=== PATIENT | female | born 1995 | race Caucasian/White ===

== ENCOUNTER 2018-04-15 08:00 | Outpatient (RCR) | payer BC ==
[2018-04-13] MEDS: methylPREDNISolone SOD SUCC 1,000 MG in NS (IVPB) 100 ML IV SCH (13:27)
[2018-04-13 14:30] VITALS: BP 108/63
[2018-04-14] MEDS: methylPREDNISolone SOD SUCC 1,000 MG in NS (IVPB) 100 ML IV SCH (08:35)
[2018-04-14 09:14] VITALS: BP 122/78
[~2018-04-15] VITALS: Ht 162.6 cm; Wt 86.2 kg
[~2018-04-15 08:00] MED LIST: NS (IVPB) 100 ML ONE
[2018-04-15] MEDS: methylPREDNISolone SOD SUCC 1,000 MG in NS (IVPB) 100 ML IV SCH (08:15)
[2018-04-15 08:24] VITALS: BP 129/69
== END 2018-04-15 09:30 | disposition home or self-care (01) ==
LOC: SDC 08:00
PROVIDERS: ATTEND Internal Medicine
DX: G35 Multiple sclerosis (principal)
CPT/HCPCS: 96365

== ENCOUNTER 2018-05-19 15:43 | Emergency (ER) | payer OTHER, BC ==
[~2018-05-19] VITALS: Ht 162.6 cm; Wt 86.2 kg
--- OUTSIDE RECORDS SUMMARY | 2018-05-19 15:49 | XMS REPORT ---
Author Author SAM MORTON Organization [facility] Address [address] [place] [address] Care Team Providers Care Health Care Social Worker Name Role Phone ZENIA MORTONTA Unavailable PROBLEMS Type Condition ICD9-CM Code [id number] Code Onset Dates Condition Status SNOMED Code Problem Acute bilateral low back pain with right-sided sciatica M54.41 Active 681411237 Problem Paresthesia of skin R20.2 Active 25428378 Problem MENINGOCOCCAL DX V03.89 Active 19997358 ALLERGIES No Information ENCOUNTERS Encounter Location Date Diagnosis [place] [address] [address] Mar, [place] [address] [address] Mar, [place] [address] [address] Jan, Acute bilateral low back pain with right-sided sciatica M54.41 [place] [address] [address] 19 Jan, 2018 Paresthesia of skin R20.2 [place] [address] [address] Jan, Paresthesia of skin R20.2 ; Screening for other and unspecified deficiency anemia Z13.0 ; Screening for hyperlipidemia Z13.220 ; Screening for thyroid disorder Z13.29 and Acute bilateral low back pain with right-sided sciatica M54.41 [facility] [address] [place] [id number] [place] [address] Dec, Back pain, lumbosacral M54.5 [facility] [address] [id number] Dec, Paresthesia of skin R20.2 and Anesthesia of skin R20.0 [facility] [id number] [address] May, [facility] [address] [address] May, Acute URI J06.9 [facility] [address] [address] Dec, [facility] [address] [address] Dec, IMMUNIZATIONS No Known Immunizations SOCIAL HISTORY Never Assessed REASON FOR VISIT Request Return Call PLAN OF CARE VITAL SIGNS MEDICATIONS Unknown Medications RESULTS No Results PROCEDURES No Known procedures INSTRUCTIONS MEDICATIONS ADMINISTERED No Known Medications MEDICAL (GENERAL) HISTORY Type Description Date Surgical History tonsillectomy
--- OUTSIDE RECORDS SUMMARY | 2018-05-19 15:49 | XMS REPORT ---
Author Author SAM MORTON Organization [facility] Address [address] [place] [address] Care Team Providers Care House Admin Name Role Phone ZENIA MORTONTA Unavailable PROBLEMS Type Condition ICD9-CM Code PSO24-UQ Code Onset Dates Condition Status SNOMED Code Problem Acute bilateral low back pain with right-sided sciatica M54.41 Active 954227741 Problem Paresthesia of skin R20.2 Active 36385879 Problem MENINGOCOCCAL DX V03.89 Active 59155061 ALLERGIES No Information ENCOUNTERS Encounter Location Date Diagnosis [place] [address] [address] Mar, [facility] [address] [address] Jan, Acute bilateral low back pain with right-sided sciatica M54.41 [place] [address] [address] 19 Jan, 2018 Paresthesia of skin R20.2 [place] [address] [address] 11 Jan, 2018 Paresthesia of skin R20.2 ; Screening for other and unspecified deficiency anemia Z13.0 ; Screening for hyperlipidemia Z13.220 ; Screening for thyroid disorder Z13.29 and Acute bilateral low back pain with right-sided sciatica M54.41 [facility] [address] [address] 09 Dec, 2017 Back pain, lumbosacral M54.5 [facility] [address] [address] Dec, Paresthesia of skin R20.2 and Anesthesia of skin R20.0 [place] [address] [facility] [id number] [address] May, [facility] [address] [place] [id number] [address] May, Acute URI J06.9 [facility] [address] [facility] [id number] [address] Dec, [facility] [address] [place] [id number] [address] Dec, IMMUNIZATIONS No Known Immunizations SOCIAL HISTORY Never Assessed REASON FOR VISIT MRI PLAN OF CARE VITAL SIGNS MEDICATIONS Unknown Medications RESULTS No Results PROCEDURES No Known procedures INSTRUCTIONS MEDICATIONS ADMINISTERED No Known Medications MEDICAL (GENERAL) HISTORY Type Description Date Surgical History tonsillectomy
--- OUTSIDE RECORDS SUMMARY | 2018-05-19 15:50 | XMS REPORT ---
Author Author SAM MORTON Organization [facility] Address [address] [place] [address] Care Team Providers Care Caramel Cutter Machine Name Role Phone KING SAM Unavailable PROBLEMS Type Condition ICD9-CM Code [id number] Code Onset Dates Condition Status SNOMED Code Problem Acute bilateral low back pain with right-sided sciatica M54.41 Active 273078048 Problem Paresthesia of skin R20.2 Active 54430838 Problem MENINGOCOCCAL DX V03.89 Active 60016065 ALLERGIES No Known Allergies ENCOUNTERS Encounter Location Date Diagnosis [place] [address] [address] Jan, Acute bilateral low back pain with right-sided sciatica M54.41 [facility] [address] [place] [id number] [place] [address] Jan, Paresthesia of skin R20.2 [place] [address] [address] Jan, Paresthesia of skin R20.2 ; Screening for other and unspecified deficiency anemia Z13.0 ; Screening for hyperlipidemia Z13.220 ; Screening for thyroid disorder Z13.29 and Acute bilateral low back pain with right-sided sciatica M54.41 [facility] [address] [place] [id number] [place] [address] Dec, Back pain, lumbosacral M54.5 [facility] [address] [place] [id number] [place] [address] Dec, Paresthesia of skin R20.2 and Anesthesia of skin R20.0 [facility] [address] [place] [id number] [place] [address] May, [facility] [address] [facility] [id number] [place] [address] May, Acute URI J06.9 [facility] [address] [facility] [id number] [place] [address] Dec, [facility] [address] [facility] [id number] [place] [address] Dec, IMMUNIZATIONS No Known Immunizations SOCIAL HISTORY Never Assessed REASON FOR VISIT Establish Care----DBennettRN, intermittent lower back pain, numbness in bilateral feet x 1 month PLAN OF CARE Activity Details Follow Up 3 months or as indicated by lab Reason: VITAL SIGNS Height 64 in 2018-02-06 Weight 195 lbs 2018-02-06 Temperature 98.4 degrees Fahrenheit 2018-02-06 Heart Rate 120 bpm 2018-02-06 Respiratory Rate 20 2018-02-06 BMI 33.47 kg/m2 2018-02-06 Blood pressure systolic 120 mmHg 2018-02-06 Blood pressure diastolic 64 mmHg 2018-02-06 MEDICATIONS Medication Instructions Dosage Frequency Start Date End Date Duration Status Tylenol 8 Hour 650 MG Orally every 8 hrs 2 tablets as needed 8h Active Ibuprofen 400 MG Orally Three times a day 1 tablet with food or milk as needed 8h Active RESULTS No Results PROCEDURES Procedure Date Ordered Result Body Site URINALYSIS, AUTO, W/O SCOPE Feb 06, 2018 URINE TEST Feb 06, 2018 LIPID PANEL Feb 06, 2018 ASSAY THYROID STIM HORMONE Feb 06, 2018 VENIPUNCT, ROUTINE* Feb 06, 2018 X-RAY EXAM OF LOWER SPINE Feb 06, 2018 COMPREHEN METABOLIC PANEL Feb 06, 2018 COMPLETE CBC W/AUTO DIFF WBC Feb 06, 2018 INSTRUCTIONS MEDICATIONS ADMINISTERED No Known Medications MEDICAL (GENERAL) HISTORY Type Description Date Surgical History tonsillectomy
--- OUTSIDE RECORDS SUMMARY | 2018-05-19 15:50 | XMS REPORT ---
Author Author KODY Moura Organization [facility] Address [address] [place] [address] Care Team Providers Care Plans Examiner Name Role Phone KODY Moura Unavailable PROBLEMS Type Condition ICD9-CM Code HJX69-AO Code Onset Dates Condition Status SNOMED Code Problem MENINGOCOCCAL DX V03.89 Active 08608399 ALLERGIES No Known Allergies ENCOUNTERS Encounter Location Date Diagnosis [facility] [id number] [place] [address] May, [facility] [address] [place] [address] May, Acute URI J06.9 [facility] [address] [place] [address] Dec, [facility] [address] [place] [id number] [place] [address] Dec, IMMUNIZATIONS Vaccine Route Administration Date Status TORADOL (IM) 60 MG/2ML (UP TO 15 MG) IM Intramuscular Jun 01, 2017 Administered SOCIAL HISTORY Never Assessed REASON FOR VISIT head and nasal congestion PLAN OF CARE Activity Details Follow Up prn Reason: VITAL SIGNS Weight 205.4 lbs 2017-06-01 Temperature 98.1 degrees Fahrenheit 2017-06-01 Heart Rate 84 bpm 2017-06-01 Respiratory Rate 20 2017-06-01 Blood pressure systolic 122 mmHg 2017-06-01 Blood pressure diastolic 74 mmHg 2017-06-01 MEDICATIONS Medication Instructions Dosage Frequency Start Date End Date Duration Status Azithromycin 250 MG Orally Once a day 2 tablets on day 1, the take 1 tablet day 2-5 24h 5 day(s) Active RESULTS No Results PROCEDURES Procedure Date Ordered Result Body Site TORADOL (IM) 60 MG/2ML (UP TO 15 MG) Jun 01, 2017 THER/PROPH/DIAG INJ, SC/IM Jun 01, 2017 INSTRUCTIONS MEDICATIONS ADMINISTERED No Known Medications
--- OUTSIDE RECORDS SUMMARY | 2018-05-19 15:50 | XMS REPORT ---
Author Author KODY Moura Organization [facility] Address [address] [place] [address] Care Team Providers Care Risk And Insurance Consultant Name Role Phone KODY Moura Unavailable PROBLEMS Type Condition ICD9-CM Code GTV34-JV Code Onset Dates Condition Status SNOMED Code Problem MENINGOCOCCAL DX V03.89 Active 56799388 ALLERGIES No Information ENCOUNTERS Encounter Location Date Diagnosis [facility] [id number] [address] May, [facility] [address] [address] May, Acute URI J06.9 [facility] [address] [place] [id number] [address] Dec, [facility] [address] [place] [address] Dec, IMMUNIZATIONS No Known Immunizations SOCIAL HISTORY Never Assessed REASON FOR VISIT prescription PLAN OF CARE VITAL SIGNS MEDICATIONS Unknown Medications RESULTS No Results PROCEDURES No Known procedures INSTRUCTIONS MEDICATIONS ADMINISTERED No Known Medications
--- OUTSIDE RECORDS SUMMARY | 2018-05-19 15:50 | XMS REPORT ---
Author Author ALFONZO MARTIN Organization [facility] Address [address] [place] [address] Care Team Providers Care Measuring Clerk Name Role Phone ALFONZO MARTIN Unavailable PROBLEMS Type Condition ICD9-CM Code QEB19-BY Code Onset Dates Condition Status SNOMED Code Problem Acute bilateral low back pain with right-sided sciatica M54.41 Active 318115452 Problem Paresthesia of skin R20.2 Active 77370406 Problem MENINGOCOCCAL DX V03.89 Active 73403762 ALLERGIES No Known Allergies ENCOUNTERS Encounter Location Date Diagnosis [facility] [address] [address] Jan, Paresthesia of skin R20.2 ; Screening for other and unspecified deficiency anemia Z13.0 ; Screening for hyperlipidemia Z13.220 ; Screening for thyroid disorder Z13.29 and Acute bilateral low back pain with right-sided sciatica M54.41 [facility] [address] [address] Dec, Back pain, lumbosacral M54.5 [facility] [address] [address] Dec, Paresthesia of skin R20.2 and Anesthesia of skin R20.0 [facility] [address] [place] [id number] [place] [address] May, [facility] [address] [address] May, Acute URI J06.9 [facility] [address] [address] Dec, [facility] [address] [place] [address] Dec, IMMUNIZATIONS No Known Immunizations SOCIAL HISTORY Never Assessed REASON FOR VISIT reports 2 days ago she was at work and her feet et toes went numb et they still are. also stated she works 8 hour shifts and is on her feet all day. [email or web address] PLAN OF CARE Activity Details Follow Up 01/09 courtney/ Kindra Amado Reason:establish care/bilateral foot numbness VITAL SIGNS Height 64 in 2018-01-03 Weight 195.2 lbs 2018-01-03 Temperature 98.4 degrees Fahrenheit 2018-01-03 Heart Rate 80 bpm 2018-01-03 Respiratory Rate 20 2018-01-03 BMI 33.50 kg/m2 2018-01-03 Blood pressure systolic 120 mmHg 2018-01-03 Blood pressure diastolic 70 mmHg 2018-01-03 MEDICATIONS No Known Medications RESULTS No Results PROCEDURES No Known procedures INSTRUCTIONS MEDICATIONS ADMINISTERED No Known Medications MEDICAL (GENERAL) HISTORY Type Description Date Surgical History tonsillectomy
--- OUTSIDE RECORDS SUMMARY | 2018-05-19 15:50 | XMS REPORT ---
Author Author SAM MORTON Organization [facility] Address [address] [place] [address] Care Team Providers Care Import/Export Administrator Name Role Phone KING SAM Unavailable PROBLEMS Type Condition ICD9-CM Code JHL86-LZ Code Onset Dates Condition Status SNOMED Code Problem Acute bilateral low back pain with right-sided sciatica M54.41 Active 418726570 Problem Paresthesia of skin R20.2 Active 53658896 Problem MENINGOCOCCAL DX V03.89 Active 12846705 ALLERGIES No Information ENCOUNTERS Encounter Location Date Diagnosis [place] [address] [address] Jan, Acute bilateral low back pain with right-sided sciatica M54.41 [facility] [address] [place] [id number] [place] [address] Jan, Paresthesia of skin R20.2 [place] [address] [address] Jan, Paresthesia of skin R20.2 ; Screening for other and unspecified deficiency anemia Z13.0 ; Screening for hyperlipidemia Z13.220 ; Screening for thyroid disorder Z13.29 and Acute bilateral low back pain with right-sided sciatica M54.41 [facility] [address] [place] [id number] [place] [address] Dec, Back pain, lumbosacral M54.5 [facility] [address] [place] [id number] [place] [address] Dec, Paresthesia of skin R20.2 and Anesthesia of skin R20.0 [place] [address] [place] [id number] [place] [address] May, [facility] [address] [facility] [id number] [place] [address] May, Acute URI J06.9 [facility] [address] [facility] [id number] [address] Dec, [facility] [address] [facility] [id number], [place] [address] Dec, IMMUNIZATIONS No Known Immunizations SOCIAL HISTORY Never Assessed REASON FOR VISIT MRI PLAN OF CARE VITAL SIGNS MEDICATIONS Unknown Medications RESULTS Name Result Date Reference Range MRI : Lumbar w/o contrast PROCEDURES No Known procedures INSTRUCTIONS MEDICATIONS ADMINISTERED No Known Medications MEDICAL (GENERAL) HISTORY Type Description Date Surgical History tonsillectomy
--- OUTSIDE RECORDS SUMMARY | 2018-05-19 15:50 | XMS REPORT | Continuity of Care Document ---
Author Author [facility] Address Unknown Phone Unavailable Allergies Active Description Code Type Severity Reaction Onset Reported/Identified Relationship to Patient Clinical Status Yes No Known Drug Allergies [id number] Drug Allergy Unknown N/A 04/13/2018 Medications There is no data. Problems Date Dx Coded Attending Type Code Diagnosis Diagnosed By EUSEBIA MICHAEL DO Ot G35 MULTIPLE SCLEROSIS 12/30/2013 HATTIE VEGA APRN V03.89 MENINGOCOCCAL DX 04/15/2018 EUSEBIA MICHAEL DO Ot G35 MULTIPLE SCLEROSIS Procedures There is no data. Results Test Result Range TSH - 02/06/18 15:34 TSH 1.17 mIU/L NRG Encounters ACCT No. Visit Date/Time Discharge Status Pt. Type Provider Facility Loc./Unit Complaint [id number] 12/30/2013 14:19:00 12/30/2013 23:59:59 CLS Outpatient HATTIE VEGA APRN [id number] 01/04/2018 16:10:00 01/04/2018 23:59:59 CLS Outpatient [facility] [id number] 02/06/2018 13:40:00 Document Registration [id number] 04/15/2018 08:00:00 04/15/2018 09:30:00 DIS Outpatient EUSEBIA MICHAEL DO [facility] SDC OCULAR NEURITIS [id number] 02/16/2018 09:11:00 02/16/2018 23:59:59 CLS Preadmit SAM MORTON APRN [facility] RAD ACUTE BILATERAL LOW BACK PAIN [id number] 05/19/2018 15:45:00 ACT Emergency JOSEPH MCKEON MD [facility] ER CUT FINGER AT WORK
--- OUTSIDE RECORDS SUMMARY | 2018-05-19 15:50 | XMS REPORT ---
Author Author WILLI Blanca Organization [facility] Address [address] [place] [address] Care Team Providers Care Sales And Service Advisor Name Role Phone WILLI Blanca Unavailable PROBLEMS Type Condition ICD9-CM Code FEX95-UP Code Onset Dates Condition Status SNOMED Code Problem Acute bilateral low back pain with right-sided sciatica M54.41 Active 288059593 Problem Paresthesia of skin R20.2 Active 27891465 Problem MENINGOCOCCAL DX V03.89 Active 94234085 ALLERGIES No Known Allergies ENCOUNTERS Encounter Location Date Diagnosis [place] [address] [address] Jan, Paresthesia of skin R20.2 ; Screening for other and unspecified deficiency anemia Z13.0 ; Screening for hyperlipidemia Z13.220 ; Screening for thyroid disorder Z13.29 and Acute bilateral low back pain with right-sided sciatica M54.41 [facility] [address] [address] Dec, Back pain, lumbosacral M54.5 [facility] [address] [address] Dec, Paresthesia of skin R20.2 and Anesthesia of skin R20.0 [facility] [address] [address] May, [facility] [address] [address] May, Acute URI J06.9 [place] [address] [address] Dec, [facility] [address] [facility] [id number] [place] [address] Dec, IMMUNIZATIONS No Known Immunizations SOCIAL HISTORY Never Assessed REASON FOR VISIT foot pain et numbness bilaterally. was here yesterday for this same complaint. also pain in her right lower back. thinks the pain is bec ause she works 8 hr shifts. [email or web address] PLAN OF CARE Activity Details Follow Up prn Reason: VITAL SIGNS Height 64 in 2018-01-04 Weight 196.0 lbs 2018-01-04 Temperature 98.0 degrees Fahrenheit 2018-01-04 Heart Rate 82 bpm 2018-01-04 Respiratory Rate 20 2018-01-04 BMI 33.64 kg/m2 2018-01-04 Blood pressure systolic 116 mmHg 2018-01-04 Blood pressure diastolic 72 mmHg 2018-01-04 MEDICATIONS No Known Medications RESULTS No Results PROCEDURES No Known procedures INSTRUCTIONS MEDICATIONS ADMINISTERED No Known Medications MEDICAL (GENERAL) HISTORY Type Description Date Surgical History tonsillectomy
[2018-05-19] MEDS ORDERED: TETANUS,DIPTH,PERTUSS P/F (BOOSTRIX) 0.5 ML VIAL IM STA (16:18)
--- NOTE | 2018-05-19 16:42 | ED Upper Extremity ---
General Chief Complaint: Laceration Stated Complaint: CUT FINGER AT WORK Nursing Triage Note: PT SENT FROM WORK WITH LEFT FINGER LACERATION. PT STATES SHE CUTTING VEGETABLE AT WORK AND CUT HER FINGER. Nursing Sepsis Screen: No Definite Risk Source: patient Exam Limitations: no limitations History of Present Illness Date Seen by Provider: May 19, 2018 Time Seen by Provider: 16:10 Initial Comments Here with laceration to the left index finger when she accidentally cut herself with a knife while cutting that she was at work. Denies other injury. Last tetanus shot was at least 5 years ago but she is unsure. She did wash the wound with peroxide after the injury. Onset: just prior to arrival Severity: mild Pain/Injury Location: left 2nd finger Method of Injury: incised Modifying Factors: Worse With Movement; Improves With Rest Allergies and Home Medications Allergies Coded Allergies: No Known Drug Allergies (Unverified , 04/13/18) Patient Home Medication List Home Medication List Reviewed: Yes Review of Systems Constitutional: no symptoms reported Respiratory: no symptoms reported Cardiovascular: no symptoms reported Skin: see HPI, lesions; No rash Psychiatric/Neurological: No Symptoms Reported Past Rupvrge-Yruwjw-Xwtsts Hx Past Med/Social Hx: Reviewed Nursing Past Med/Soc Hx Patient Social History Alcohol Use: Denies Use Recreational Drug Use: No Smoking Status: Never a Smoker Recent Foreign Travel: No Contact w/Someone Who Travel: No Recent Infectious Disease Expo: No Recent Hopitalizations: No Immunizations Up To Date Tetanus Booster (TDap): Less than 5yrs PED Vaccines UTD: Yes Seasonal Allergies Seasonal Allergies: No Past Medical History Surgeries: Yes Tonsillectomy Respiratory: No Cardiac: No Neurological: No Genitourinary: No Gastrointestinal: No Musculoskeletal: No Endocrine: No HEENT: No Cancer: No Psychosocial: No Integumentary: No Blood Disorders: No Family Medical History Reviewed Nursing Family Hx No Pertinent Family Hx Physical Exam Vital Signs Vital Signs - First Documented 05/19/18 15:51 Pulse 86 Resp 20 B/P (MAP) 134/87 (103) Pulse Ox 97 O2 Delivery Room Air Capillary Refill : Less Than 3 Seconds Height, Weight, BMI Height: 5'4.00" Weight: 190lbs. 0.0oz. 86.378165ew; BMI Method:Stated General Appearance: WD/WN, no apparent distress Cardiovascular: regular rate, rhythm, no murmur Respiratory: lungs clear, normal breath sounds Hand: Left, laceration (left index finger from side surface lateral aspect that does not involve the nail. Superficial flap of about 0.5 x 1 cm), soft tissue tenderness Neurologic/Psychiatric: alert, normal mood/affect, oriented x 3 Skin: warm/dry, other (laceration as above) Procedures/Interventions Wound Location: Upper Extremities Other Wound Location Left index finger thumb side lateral aspect Wound Length (cm): 1 Wound's Depth, Shape: flap Wound Explored: contaminated Betadine Prep?: No Wound Debrided: minimal Other Closure Supply: Wound Adhesive Number of Sutures: 0 Progress Cleaned and covered with skin glue. Flap: Please well after glue. Bleeding controlled. Progress/Results/Core Measures Results/Orders My Orders Orders - JOSEPH MCKEON MD Dipht,Pertuss(Acell),Tet Adult (Boostrix (05/19/18 16:18) Vital Signs/I&O 05/19/18 15:51 Pulse 86 Resp 20 B/P (MAP) 134/87 (103) Pulse Ox 97 O2 Delivery Room Air Blood Pressure Mean: 103 Progress Progress Note : Progress Note Wound cleaned. Closed with skin glue. Tolerated procedure well with no complications. Discharged home with return precautions. Patient verbalize understanding instructions and agreement with plan. Tetanus updated. Departure Impression Primary Impression: Finger laceration Qualified Codes: S61.211A - Laceration without foreign body of left index finger without damage to nail, initial encounter Disposition: 01 HOME, SELF-CARE Condition: Improved Departure-Patient Inst. Decision time for Depature: 16:41 Referrals: [facility] [place] (PCP) Primary Care Physician SAM MORTON APRN (Family) Primary Care Physician Patient Instructions: Laceration Repair With Glue (DC) Add. Discharge Instructions: All discharge instructions reviewed with patient and/or family. Voiced understanding. You may cover wound with dry dressing and/or glove as needed. Do not use antibiotic ointment on wound and do not soak wound as this will prematurely remove glue. The glue should follow 5*the next for 5 days. Return for worse pain, swelling, increasing redness, red streaks up the hand, fever or other concerns as needed. JOSEPH MCKEON MD May 19, 2018 16:42
[2018-05-19 17:05] VITALS: BP 134/87
== END 2018-05-19 17:05 | disposition home or self-care (01) ==
LOC: EDUNIT# 15:43 → ER 15:45
DX: S61.211A Laceration without foreign body of left index finger without damage to nail, initial encounter (principal); Z90.89 Acquired absence of other organs; W26.0XXA Contact with knife, initial encounter; Y99.0 Civilian activity done for income or pay
CPT/HCPCS: 12001; 90715

== ENCOUNTER 2021-04-01 05:31 | Outpatient (RCR) | payer BC ==
[~2021-04-01] VITALS: Ht 165.1 cm; Wt 107.6 kg
[~2021-04-01 05:31] MED LIST changes: -NS (IVPB) 100 ML ONE; +TERI14TA PO
== END 2021-04-01 12:53 | disposition home or self-care (01) ==
LOC: PREOP 05:31
PROVIDERS: ATTEND Surgery
DX: Z01.812 Encounter for preprocedural laboratory examination (principal); K21.9 Gastro-esophageal reflux disease without esophagitis; Z20.822 Contact with and (suspected) exposure to COVID-19
CPT/HCPCS: 87635

== ENCOUNTER 2021-04-05 08:54 | Day surgery (SDC) | payer BC ==
[~2021-04-05] VITALS: Ht 165 cm; Wt 107.4 kg
[2021-04-05] VITALS (7 sets, daily range): BP systolic 119–134; BP diastolic 62–92
--- OUTSIDE RECORDS SUMMARY | 2021-04-05 08:57 | XMS REPORT | Clinical Summary ---
Author Author [facility] Organization [facility] Address Unknown Phone Unavailable Care Team Providers Care Manager In Home Name Role Phone Soumya Cardona APRN PCP [phone] Source Comments Some departments are not documenting in the electronic medical record. If you d o not see the information that you expected, contact Release of Information in [facility] Health Information Management department at [phone] for further assistan ce in locating additional records.[facility] Allergies No Known Active Allergies Medications End Date Status Medication Sig Dispensed Refills Start Date Active MULTIVITAMIN PO Take by [address] (PRILOSEC) Take 20 mg by 0 20 mg capsule mouth daily before breakfast. Active teriflunomide (AUBAGIO) Take one 30 tablet 5 14 mg tablet tablet by 1 mouth daily. Take at the same time every day. Active cholecalciferol (VITAMIN Take 2,000 0 D-3) 1,000 units tablet Units by mouth daily. Active amoxicillin (AMOXIL) 500 Take 500 mg 0 mg capsule by mouth twice daily. Active metroNIDAZOLE (FLAGYL) Take 500 mg 0 500 mg tablet by mouth twice daily. Take with food. Do not drink alcohol while on metronidazole . Active ondansetron (ZOFRAN ODT) Dissolve by 0 4 mg rapid dissolve mouth twice tablet daily. Place on tongue to dissolve. Active Problems Problem Noted Date PTSD (post-traumatic stress disorder) 02/01/2021 Overview: Formatting of this note might be differ ent from the original. Has failed Paxil, duloxetine, vybrid, h ydroxyzine L ast Assessment & Plan: Formatting of this note might be differ ent from the original. Currently taking Trintellix. Will defer to her psychiatrist for furt her treatment. Encouraged her to continue treatment. T he MS should have no bearing on her treatment at this time. Multiple sclerosis 05/17/2018 Overview: Formatting of this note might be differ ent from the original. MS Subtype: Relapsing-Remitting Symptom onset: November 2017 Diagnosis: Apr 2018 Past Failed DMD: copaxone (couldn't do injections) Current DMD: aubagio LP 03/2018: 12 OCB, 2.04 IgG index NMO antibody neg Last MRI 2020 Unchanged bilateral periventricular/per icallosal lesions, compatible with clinically reported multiple sclerosis. No evidence of new lesion. MRI C-spine 2018 Unremarkable MRI cervical spine. MRI T-spine 2018 On personal review there appears to be a T2 hyperintensity in the posterior cord at T9-T10. L ast Assessment & Plan: Formatting of this note might be differ ent from the original. Clinically and radiographically stable on Aubagio. MRI reviewed with patient. Continue Aubagio CBC, CMP Vitamin D level. 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; 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); Vitamin D deficiency 01/22/2021 Orders Only Neurology from Last 3 Months Surgical History Surgery Date Site/Laterality Comments HX TONSILLECTOMY Medical History Medical History Date Comments Generalized headaches Multiple sclerosis (HCC) Family History Medical History Relation Name Comments Heart Attack Father Stroke Father Diabetes Type II Maternal Grandfather Diabetes Type II Maternal Grandmother Multiple sclerosis Mother Relation Name Status Comments Father Maternal Grandfather Maternal Grandmother Mother Social History Date Tobacco Use Types Packs/Day Years Used Passive Smoke Exposure - Never Smoker Smokeless Tobacco: Never Used Comments Alcohol Use Standard Drinks/Week No 0 (1 standard drink = 0.6 o z pure alcohol) Sex Assigned at Date Recorded Female 11/11/2019 11:10 AM CDT Last Filed Vital Signs Reading Time Taken Comments Vital Sign 127/85 01/29/2021 2:01 PM CDT Blood Pressure 86 01/29/2021 2:01 PM CDT Pulse 36.7 C (98 F) 02/15/2019 11:04 AM CDT Temperature 18 01/11/2019 8:18 AM CDT Respiratory Rate 98% 01/11/2019 8:18 AM CDT Oxygen Saturation - - Inhaled Oxygen Concentration 106.7 kg (235 lb 3.2 oz) 01/29/2021 2:01 PM CDT Weight 162.6 cm (5' 4") 01/29/2021 2:01 PM CDT Height 40.37 01/29/2021 2:01 PM CDT Body Mass Index Plan of Treatment Health Maintenance Due Date Last Done Comments HPV VACCINES (1 - 2-dose 10/09/2007 series) HIV SCREENING 10/09/2011 DTAP/TDAP VACCINES (1 - 2014 Tdap) HEPATITIS C SCREENING 2014 PHYSICAL (COMPREHENSIVE) 2014 EXAM CERVICAL CANCER SCREENING 2017 INFLUENZA VACCINE 12/27/2020 Procedures Comments Procedure Name Priority Date/Time Associated Diag nosis HC 25-OH VITAMIN D Routine 01/29/2021 Multiple sc lerosis (HCC) 2:43 PM CDT Vitamin D deficiency HC CBC W/ AUTOMATED DIFF Routine 01/29/2021 Multi ple sclerosis (HCC) 2:43 PM CDT care home current use of therapeutic drug 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) HC COMPREHENSIVE Routine 01/29/2021 Multiple scle rosis (HCC) METABOLIC PANEL 2:43 PM CDT data communications analyst current u se of therapeutic drug 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) MRI HEAD WO CONTRAST Routine 01/29/2021 Multiple sclerosis (HCC) 9:25 AM CDT from Last 3 Months Results * 25-OH VITAMIN D (D2 + D3) (01/29/2021 2:43 PM CDT) Vitamin 32.7 30 - 80 NG/ML [facility] D(25-OH)Total Specimen Blood Performing Organization Address City/State/ZIP Code P marian Number [facility] [address] [place] [address] * CBC AND DIFF (01/29/2021 2:43 PM CDT) White Blood 7.7 4.5 - 11.0 K/UL [facility] Cells RBC 4.92 4.0 - 5.0 M/UL [facility] Hemoglobin 11.8 (L) 12.0 - 15.0 GM/DL [facility] Hematocrit 36.1 36 - 45 % [facility] MCV 73.4 (L) 80 - 100 FL [facility] MCH 23.9 (L) 26 - 34 PG [facility] MCHC 32.6 32.0 - 36.0 G/DL [facility] RDW 15.8 (H) 11 - 15 % [facility] Platelet Count 299 150 - 400 K/UL [facility] MPV 7.7 7 - 11 FL [facility] Neutrophils 66 41 - 77 % [facility] Lymphocytes 19 (L) 24 - 44 % [facility] Monocytes 9 4 - 12 % [facility] Eosinophils 5 0 - 5 % [facility] Basophils 1 0 - 2 % [facility] Absolute 5.09 1.8 - 7.0 K/UL [facility] Neutrophil Count Absolute Lymph 1.48 1.0 - 4.8 K/UL [facility] Count Absolute 0.67 0 - 0.80 K/UL [facility] Monocyte Count Absolute 0.36 0 - 0.45 K/UL [facility] Eosinophil Count Absolute 0.06 0 - 0.20 K/UL [facility] Basophil Count Specimen Blood Performing Organization Address City/State/ZIP Code P marian Number [facility] [address] [place] [address] * COMPREHENSIVE METABOLIC PANEL (01/29/2021 2:43 PM CDT) Sodium 140 137 - 147 MMOL/L [facility] Potassium 3.8 3.5 - 5.1 MMOL/L [facility] Chloride 106 98 - 110 MMOL/L [facility] Glucose 89 70 - 100 MG/DL [facility] Blood Urea 11 7 - 25 MG/DL [facility] Nitrogen Creatinine 0.77 0.4 - 1.00 MG/DL [facility] Calcium 9.0 8.5 - 10.6 MG/DL [facility] Total Protein 6.6 6.0 - 8.0 G/DL [facility] Total Bilirubin 0.3 0.3 - 1.2 MG/DL [facility] Albumin 3.9 3.5 - 5.0 G/DL [facility] Alk Phosphatase 59 25 - 110 U/L [facility] AST (SGOT) 15 7 - 40 U/L [facility] CO2 27 21 - 30 MMOL/L [facility] ALT (SGPT) 12 7 - 56 U/L [facility] Anion Gap 7 3 - 12 [facility] eGFR Non >60 >60 mL/min [facility] Comment: [place] The eGFR is not validated f or use in drug dosing adjustments. Continue to use estimated creatinine clearance per dosing reference text. Please contact the Clinical Pharmacist for questions. eGFR >60 >60 mL/min [facility] [place] Comment: The eGFR is not validated for use in drug dosing adjustments. Continue to use estimated creatinine clearance per dosing reference text. Please contact the Clinical Pharmacist for questions. Specimen Blood Performing Organization Address City/State/ZIP Code P marian Number [facility] [address] [place] [address] * MRI HEAD WO CONTRAST (01/29/2021 9:25 AM CDT) Specimen Impressions Performed At Unchanged bilateral periventricular/pericallosal lesi ons, compatible with [facility] clinically reported multiple sclerosis. No evidence of new lesion. Finalized by Isela Devine D.O. on 9:52 AM. Dictated by Isela Devine D.O. on 01/29/2021 9:41 AM. Narrative Performed At EXAM: MRI BRAIN [facility] HISTORY: Female, 25 years. Multiple scl erosis, follow-up. TECHNIQUE: Multiplanar and multisequenc e MR imaging of the head was performed. COMPARISON: MRI brain 12/06/2019. FINDINGS: No significant change in appearance or distribution of bilateral left greater than right periventricular/pericallosal FLAIR hyperintense lesions with similar involvement along the body of the corpu s callosum. Additional small unchanged right periatrial lesion. No discrete ne w lesion. No evidence of abnormal diffusion restriction. The visualized u pper cervical cord appears normal. The ventricles and subarachnoid spaces are normal in size and configuration. There is no midline shift or mass effect. The vascular flow-voids are unremarkable. The paranasal sinuses and mastoid air c ells are clear. Procedure Note Interface, Radiant Results - 01/29/2021 9:55 AM CDT EXAM: MRI BRAIN HISTORY: Female, 25 years. Multiple sclerosis, follow-up. TECHNIQUE: Multiplanar and multisequence MR imaging of the head was performed. COMPARISON: MRI brain 12/06/2019. FINDINGS: No significant change in appearance or distribution of bilateral left greater than right periventricular/pericallosal FLAIR hyperintense lesions with similar involvement along the body of the corpus callosum. Additional small unchanged right periatrial lesion. No discrete new lesion. No evidence of abnormal diffusion restriction. The visualized upper cervical cord appears normal. The ventricles and subarachnoid spaces are normal in size and configuration. There is no midline shift or mass effect. The vascular flow-voids are unremarkable. The paranasal sinuses and mastoid air cells are clear. IMPRESSION Unchanged bilateral periventricular/pericallosal lesions, compatible with clinically reported multiple sclerosis. No evidence of new lesion. Finalized by Isela Devine D.O. on 01/29/2021 9:52 AM. Dictated by Isela Devine D.O. on 01/29/2021 9:41 AM. 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
[2021-04-05] MEDS ORDERED: LACTATED RINGERS 1,000 ML IV ONE (08:58)
[2021-04-05] MEDS ORDERED: LACTATED RINGERS 1,000 ML IV STA (09:06)
[2021-04-05] MEDS ORDERED: HURRICAINE EXT TUBE (BENZOCAINE) XX PRN (09:15)
[2021-04-05] MEDS ORDERED: MIDAZOLAM 5 MG/5 ML (VERSED) VIAL ONE (10:30)
[2021-04-05] MEDS ORDERED: PROPOFOL INJECTION 50 ML IV ONE ×2 (10:31→10:50)
--- NOTE | 2021-04-05 11:00 | Progress Note-Pre Operative ---
Pre-Operative Progress Note H&P Reviewed The H&P was reviewed, patient examined and no changes noted. Time Seen by Provider: 10:44 Date H&P Reviewed: Apr 05, 2021 Time H&P Reviewed: 10:44 Pre-Operative Diagnosis: GERD, pt was in room before I saw her, sister said pt had no Q's JOSE MIGUEL BRISCOE DO Apr 05, 2021 11:00
--- NOTE | 2021-04-05 11:03 | Endoscopy Discharge Instruct ---
Endo Procedure/Findings Findings 1.: Gastritis 2.: Hiatal Hernia (very tiny and early) Discharge Instructions - Activity: You might feel a little sleepy until tomorrow. This is due to the medicine you received to relax you. Until tomorrow, you should: NOT drive a car, operate machinery or power tools. NOT drink any alcoholic beverages. NOT make any important decisions or sign importortant papers. Do not return to work until tomorrow, unless otherwise instructed. Resume previous activities tomorrow. Diet: Start by taking liquids. If you tolerate liquids, advance to solid food. 1.: EGD in 3 years Notify Physician - If you experience excessive bleeding, unusual abdominal pain, fever, or chest pain, contact your doctor immediately. JOSE MIGUEL BRISCOE DO Apr 05, 2021 11:03
--- NOTE | 2021-04-05 11:03 | Progress Note-Post Operative ---
Post-Operative Progess Note Surgeon (s)/Aluminizer (s) Surgeon JOSE MIGUEL BRISCOE DO Aluminizer: none Pre-Operative Diagnosis GERD Post-Operative Diagnosis Gastritis Esophagitis Tiny hiatal hernia Procedure & Operative Findings Date of Procedure 04/05/21 Procedure Performed/Findings EGD with bx PROCEDURE NOTE: After informed consent was obtained, the patient was brought to the endoscopy suite, placed in bed in left lateral decubitus position. She was administered IV sedation by the PLASTER WHITTLER who then monitored vitals the entire time, heart rate, blood pressure and pulse ox and the scope was inserted down the mouth through the esophagus into the stomach. Pushed into the stomach, pushed past the antrum into the duodenum. Duodenum looked good. Pulled back and did a biopsy of antrum, then retroflexed the scope did another biopsy and saw a very tiny hiatal hernia, took a picture of this and then pulled the scope into the GE junction, took another picture of the hiatal hernia and then did a biopsy of the GE junction. Pushed the scope back into the stomach, suctioned all the air out of the stomach. At this point pulled the scope up the esophagus and out the mouth. The patient tolerated the procedure, and she recovered in endoscopy suite. Anesthesia Type IV sedation by PLASTER WHITTLER Estimated Blood Loss Estimated blood loss (mL): scant Specimens/Packing Specimens Removed antral bx body of stomach bx GE jxn bx JOSE MIGUEL BRISCOE DO Apr 05, 2021 11:03
--- NOTE | 2021-04-05 12:46 | Anesthesia-General Post-Op ---
MAC Patient Condition Mental Status/LOC: Same as Preop Cardiovascular: Satisfactory Nausea/Vomiting: Absent Respiratory: Satisfactory Pain: Controlled Complications: Absent Post Op Complications Complications None Follow Up Care/Instructions Patient Instructions None needed. Anesthesiology Discharge Order Discharge Order Patient is doing well, no complaints, stable vital signs, no apparent adverse anesthesia problems. No complications reported per nursing. RIDGE RIOS CRNA Apr 05, 2021 12:46
== END 2021-04-05 11:55 | disposition home or self-care (01) ==
LOC: ENDO 08:54
PROVIDERS: ATTEND Surgery
DX: K29.50 Unspecified chronic gastritis without bleeding (principal); K21.00 Gastro-esophageal reflux disease with esophagitis, without bleeding; K44.9 Diaphragmatic hernia without obstruction or gangrene; F41.9 Anxiety disorder, unspecified; F32.A Depression, unspecified; G35 Multiple sclerosis; Z79.899 Other long term (current) drug therapy; Z77.22 Contact with and (suspected) exposure to environmental tobacco smoke (acute) (chronic)